=== PATIENT | female | born 1930 | race Two or more races ===

== ENCOUNTER 2018-09-19 06:42 | Emergency (ER) | payer OTHER ==
[~2018-09-19] VITALS: Ht 152.4 cm; Wt 83.0 kg
== END 2018-09-19 11:07 | disposition home or self-care (01) ==
LOC: ER 06:42
DX: S00.83XA Contusion of other part of head, initial encounter (principal); S60.221A Contusion of right hand, initial encounter; S70.01XA Contusion of right hip, initial encounter; W18.39XA Other fall on same level, initial encounter; Y93.89 Activity, other specified; Y92.098 Other place in other non-institutional residence as the place of occurrence of the external cause; Y99.8 Other external cause status

== ENCOUNTER 2020-07-11 14:53 | Inpatient (IN) | payer OTHER ==
[~2020-07-11] VITALS: Ht 157.5 cm; Wt 77.1 kg
[2020-07-11] MEDS ORDERED: COZAAR50 MG (14:59)
[2020-07-12] MEDS ORDERED: TRENTAL (03:36)
[2020-07-12] MEDS ORDERED: PROTONIX40 MG (03:36)
[2020-07-12] MEDS ORDERED: ZOCOR20 MG (03:37)
[2020-07-12] MEDS ORDERED: PRAVACHOL (03:37)
[2020-07-12] MEDS ORDERED: NEURONTIN300 MG (03:37)
[2020-07-18] MEDS ORDERED: ULTRAM50 MG PO (10:00)
[2020-07-18] MEDS ORDERED: AVIDOXY100 MG PO (17:03)
== END 2020-07-18 19:40 | disposition home health service (06) | DRG 690 ==
LOC: ER 14:53 → MEDI 21:44
PROVIDERS: ADMIT Internal Medicine; ATTEND Internal Medicine
PROC: BW28ZZZ Computerized Tomography (CT Scan) of Head (ICD-10-PCS; 2020-07-12)
PROC: BW21YZZ Computerized Tomography (CT Scan) of Abdomen and Pelvis using Other Contrast (ICD-10-PCS; principal; 2020-07-13)
PROC: B24BZZZ Ultrasonography of Heart with Aorta (ICD-10-PCS; 2020-07-14)
DX: N39.0 Urinary tract infection, site not specified (principal); B96.29 Other Escherichia coli [E. coli] as the cause of diseases classified elsewhere; E87.6 Hypokalemia; M62.830 Muscle spasm of back; N20.0 Calculus of kidney; I10 Essential (primary) hypertension; Z20.822 Contact with and (suspected) exposure to COVID-19; R41.0 Disorientation, unspecified; K59.09 Other constipation